=== PATIENT | female | born 1985 | race Caucasian/White ===

== ENCOUNTER 2017-06-06 15:29 | Emergency (ER) | payer SELFPAY ==
[~2017-06-06] VITALS: Ht 157.5 cm; Wt 58.4 kg
[~2017-06-06 15:29] MED LIST: CELEXA20 MG PO; CLEOCIN300 MG; EXCEDRIN EXTRA1 EAC1 PO; PROVENTIL HFA6.7 GM IH; VENTOLIN17 GM IH; ZANTAC300 MG PO
[2017-06-06 16:24] LABS: HEMATOCRIT 41.2 % (36.0-46.0); HEMOGLOBIN 14.5 G/DL (11.9-15.5); MCH 30.9 PG (29.0-34.0); MCHC 35.2 G/DL (30.0-36.0); MCV 87.8 FL (83-99); PLATELET COUNT 275 K/uL (156-360); RBC DIS.WIDTH-CV 11.9 % (11.8-14.6); RBC DIS.WIDTH-SD 38.4 % (39-53); RED BLOOD COUNT 4.69 M/uL (3.80-5.20); WHITE BLOOD COUNT 7.2 K/uL (4.1-10.2)
[2017-06-06 16:32] LABS: ALBUMIN 4.6 g/dL (3.2-4.8); CHLORIDE 106 mEq/L (99-109); POTASSIUM 3.9 mEq/L (3.7-5.4); SODIUM 138 mEq/L (136-147)
[2017-06-06 16:34] LABS: GLUCOSE 98 mg/dL (70-99); TOTAL PROTEIN 7.3 g/dL (6.4-8.3)
[2017-06-06 16:36] LABS: TOTAL BILIRUBIN 0.6 mg/dL (0.0-1.0)
[2017-06-06 16:38] LABS: ALKALINE PHOSPHATASE 79 IU/L (3-129); CREATININE 0.8 mg/dL (0.6-1.3); GFR ESTIMATE (CALCULATED) > 59 mL/min/
[2017-06-06 16:39] LABS: UREA NITROGEN (BUN) 9 mg/dL (9-23)
[2017-06-06 16:40] LABS: AST (GOT) 18 IU/L (2-34)
[2017-06-06 16:41] LABS: ALT (GPT) 11 IU/L (3-49); LIPASE 27 U/L (1.0-51.0)
[2017-06-06 16:46] LABS: APPEARANCE CLEAR ((CLEAR)); BILIRUBIN NEGATIVE; BLOOD NEGATIVE; COLOR YELLOW ((YELLOW)); GLUCOSE (STRIP) NEGATIVE; KETONES NEGATIVE; LEUKOCYTES NEGATIVE; NITRITE NEGATIVE; PROTEIN (STRIP) NEGATIVE; SPECIFIC GRAVITY 1.017 (1.000-1.030); UCUL ADDED? NO; UROBILINOGEN 0.2 MG/DL (0.2-1.0)
[2017-06-06 16:49] LABS: QUANTITATIVE HCG < 4.0 MIU/ML
[2017-06-06] MEDS ORDERED: MOTRIN800 MG PO (17:19)
[2017-06-06 17:25] VITALS: BP 112/67
== END 2017-06-06 17:26 | disposition home or self-care (01) ==
LOC: EME 15:29
PROVIDERS: Nurse Practitioner Family
DX: R10.31 Right lower quadrant pain (principal); J45.909 Unspecified asthma, uncomplicated; F41.9 Anxiety disorder, unspecified
CPT/HCPCS: 80053; 81003; 83690; 84702; 84702 90; 85027; 99281; 99283